=== PATIENT | female | born 1945 | race African-American/Black ===

== ENCOUNTER 2017-03-04 14:26 | Outpatient (CLI) | payer OTHER, BC | END 2017-03-04 21:48 | disposition home or self-care (01) | LOC: SMA 14:26 | PROVIDERS: ATTEND Obstetrics & Gynecology | DX: Z12.31 Encounter for screening mammogram for malignant neoplasm of breast (principal) | CPT/HCPCS: G0202 ==

== ENCOUNTER 2018-02-17 12:03 | Outpatient (CLI) | payer OTHER, BC | END 2018-02-17 19:46 | disposition home or self-care (01) | LOC: SMI 12:03 | PROVIDERS: ATTEND Family Medicine | DX: I70.90 Unspecified atherosclerosis (principal) | CPT/HCPCS: 70547 ==